=== PATIENT | female | born 1965 | race Caucasian/White ===

== ENCOUNTER 2017-04-29 22:42 | Emergency (ER) | payer MEDICAID ==
[~2017-04-29] VITALS: Ht 165.1 cm; Wt 144.0 kg
[2017-04-29 22:52] VITALS: BP 155/97
--- NOTE | 2017-04-30 00:50 | NUR ---
PT PLACED IN BED 10.
--- NOTE | 2017-04-30 00:55 | NUR ---
51/F CAME IN FOR 01/24 LT KNEE PAIN RADIAITING TO LT HIP, CONSTANT, PROGRESSIVELY WORSENING X 2 MONTHS. PT REPORTS IT'S PAINFUL TO AMBULATE,PT REPORTS NUMBNESS TO LT KNEE, DENIES WEAKNESS, +PMSC TO LLE. PMH: HTN, DM. REPORTS TAKING 1000MG MOTRIN AND NORCO , BUT DENIES ANY RELIEF
--- NOTE | 2017-04-30 02:11 | NUR ---
ER AT BEDSIDE FOR EVAL
--- NOTE | 2017-04-30 02:11 | NUR ---
[id number]
--- NOTE | 2017-04-30 02:53 | NUR ---
Patient discharged with v/s stable. Written and verbal after care instructions given and explained. Patient alert, oriented and verbalized understanding of instructions. Ambulatory with steady gait. All questions addressed prior to discharge. ID band removed. Patient advised to follow up with PMD. Rx of NAPROSYN AND TRAMADOL given. Patient educated on indication of medication including possible reaction and side effects. Opportunity to ask questions provided and answered.
[2017-04-30 03:01] VITALS: BP 138/72
== END 2017-04-30 02:53 | disposition home or self-care (01) ==
LOC: MED 22:42
DX: M17.12 Unilateral primary osteoarthritis, left knee (principal); E66.01 Morbid (severe) obesity due to excess calories; E11.9 Type 2 diabetes mellitus without complications; I10 Essential (primary) hypertension; Z88.1 Allergy status to other antibiotic agents
CPT/HCPCS: 73562; 81002; 81025; 99284